=== PATIENT | male | born 2000 | race African-American/Black ===

== ENCOUNTER 2023-02-15 09:22 | Emergency (ER) | payer SELFPAY ==
[2023-02-15] MEDS ORDERED: Ibuprofen 200 MG TAB ONE (10:01)
[2023-02-15] MEDS ORDERED: Acetaminophen 500 MG TAB ONE (10:01)
== END 2023-02-15 10:40 | disposition home or self-care (01) ==
LOC: ERS 09:22
DX: H61.23 Impacted cerumen, bilateral (principal); I10 Essential (primary) hypertension; K05.10 Chronic gingivitis, plaque induced
CPT/HCPCS: 99282